=== PATIENT | male | born 1980 | race Caucasian/White ===

== ENCOUNTER 2022-05-29 13:42 | Emergency (ER) | payer OTHER ==
[2022-05-29] MEDS ORDERED: SODIUM CHLORIDE 0.9% 1000 ML INFUS.BAG IV ONE (14:42)
[2022-05-29] MEDS ORDERED: ACETAMINOPHEN 1000 MG/100 ML BAG IVPB ONE (14:42)
[2022-05-29] MEDS ORDERED: ACETAMINOPHEN INJECTION 100 ML IVPB ONE (15:01)
[2022-05-29 15:15] LABS: INR 1.15 (0.83-1.09); PROTHROMBIN TIME (PATIENT) 13.3 SEC (9.7-13.0)
[2022-05-29 15:18] LABS: ACTIVATED PTT 32.5 SECONDS (25.2-36.5)
[2022-05-29 15:19] LABS: EPITHELIAL CELLS RARE /hpf
[2022-05-29 15:22] LABS: ALBUMIN 4.6 g/dl (3.4-5.0); BILIRUBIN,TOTAL 1.9 mg/dl (0.2-1); CALCIUM 9.4 mg/dl (8.5-10); CREATININE 1.2 mg/dl (0.55-1.3); POTASSIUM 3.9 mmol/L (3.5-5.1); TOT PROT 7.7 g/dl (6.4-8.2)
[2022-05-29] MEDS ORDERED: CEFTRIAXONE 1 GM in DEXTROSE 5%-WATER - 100 ML IVPB ONE (16:07)
[2022-05-29] MEDS ORDERED: cefTRIAXone SODIUM 1 GM VIAL ONE (16:41)
[2022-05-29 16:56] LABS: BASO % 0.2 % (0-2.0); HEMATOCRIT 46.6 % (35.4-49); HEMOGLOBIN 16.2 GM/dL (11.7-16.9); LYMPH % 5.9 % (8-40); MCH 31.2 pg (25.7-33.7); MCHC 34.7 g/dl (32.0-35.9); MEAN PLT VOLUME 11.5 fl (7.5-11.1); MONO % 6.1 % (3.8-10.2); NEUT % 87.8 % (42.8-82.8); PLATELET COUNT 173 10^3/uL (134-434); RBC 5.17 M/mm3 (4.00-5.60); RDW 12.7 % (11.9-15.9); WHITE BLOOD COUNT 19.1 K/mm3 (4.0-10.0)
[2022-05-29 19:39] VITALS: BMI 27.6
[2022-05-29] MEDS: ACETAMINOPHEN 325 MG TABLET (FP) PO PRN (21:59)
[2022-05-30] MEDS: ACETAMINOPHEN 325 MG TABLET (FP) PO PRN (03:08)
[2022-05-30 08:34] LABS: CREATININE 1.3 mg/dl (0.55-1.3)
[2022-05-30] MEDS: ACETAMINOPHEN 1000 MG/100 ML BAG IVPB PRN ×3 (09:16→20:42)
[2022-05-30 09:46] LABS: TOT PROT 7.2 g/dl (6.4-8.2)
[2022-05-30] MEDS ORDERED: CEFTRIAXONE 1 GM in DEXTROSE 5%-WATER - 50 ML IVPB SCH (10:00)
[2022-05-30 10:02] LABS: MCH 31.2 pg (25.7-33.7); MCHC 34.5 g/dl (32.0-35.9)
[2022-05-30 10:12] LABS: BASO % 0.3 % (0-2.0); EOS % 0.1 % (0-4.5); HEMATOCRIT 43.6 % (35.4-49); LYMPH % 7.4 % (8-40); MEAN CELL VOLUME 90.4 fl (80-96); MEAN PLT VOLUME 12.3 fl (7.5-11.1); MONO % 6.5 % (3.8-10.2); NEUT % 85.7 % (42.8-82.8); PLATELET COUNT 158 10^3/uL (134-434); RBC 4.82 M/mm3 (4.00-5.60); RDW 12.6 % (11.9-15.9)
[2022-05-30] MEDS ORDERED: CEFTRIAXONE 1 GM in DEXTROSE 5%-WATER - 50 ML IVPB ONE (10:45)
[2022-05-30] MEDS: SODIUM CHLORIDE 1,000 ML IV SCH (17:05)
[2022-05-30 22:52] VITALS: RESP 18
[2022-05-31 08:24] LABS: ALBUMIN 3.4 g/dl (3.4-5.0); BILIRUBIN,DIRECT 0.3 mg/dL (0.0-0.2); BILIRUBIN,TOTAL 1.4 mg/dl (0.2-1); CALCIUM 8.6 mg/dl (8.5-10); CREATININE 1.1 mg/dl (0.55-1.3); POTASSIUM 4.1 mmol/L (3.5-5.1); TOT PROT 6.4 g/dl (6.4-8.2)
[2022-05-31 10:10] LABS: HEMOGLOBIN 13.7 GM/dL (11.7-16.9)
[2022-05-31 10:50] LABS: BASO % 0.2 % (0-2.0); EOS % 0.3 % (0-4.5); HEMATOCRIT 40.2 % (35.4-49); LYMPH % 8.7 % (8-40); MCHC 34.2 g/dl (32.0-35.9); MEAN CELL VOLUME 90.6 fl (80-96); MEAN PLT VOLUME 11.9 fl (7.5-11.1); MONO % 8.5 % (3.8-10.2); NEUT % 82.3 % (42.8-82.8); PLATELET COUNT 136 10^3/uL (134-434); RBC 4.44 M/mm3 (4.00-5.60); RDW 12.6 % (11.9-15.9); WHITE BLOOD COUNT 13.5 K/mm3 (4.0-10.0)
[2022-05-31] MEDS: ENOXAPARIN NA (PORCINE) 40 MG/0.4 ML DISP.SYRIN SQ SCH (11:54)
[2022-05-31] MEDS: CEFTRIAXONE 2 GM in DEXTROSE 5%-WATER 100 ML IVPB SCH (11:58)
[2022-05-31] MEDS: SODIUM CHLORIDE 1,000 ML IV SCH (21:55)
[2022-06-01] MEDS: CEFTRIAXONE 2 GM in DEXTROSE 5%-WATER 100 ML IVPB SCH (09:57)
[2022-06-01] MEDS: ENOXAPARIN NA (PORCINE) 40 MG/0.4 ML DISP.SYRIN SQ SCH (09:57)
[2022-06-01 10:11] VITALS: BP 105/64; PULSE 72; TEMP 99
[2022-06-01 11:02] LABS: ALBUMIN 3.6 g/dl (3.4-5.0); CALCIUM 9.1 mg/dl (8.5-10); CREATININE 1.1 mg/dl (0.55-1.3); POTASSIUM 4.2 mmol/L (3.5-5.1); TOT PROT 6.8 g/dl (6.4-8.2)
[2022-06-01 12:13] LABS: BASO % 0.4 % (0-2.0); HEMATOCRIT 42.1 % (35.4-49); HEMOGLOBIN 14.2 GM/dL (11.7-16.9); LYMPH % 11.1 % (8-40); MCH 30.8 pg (25.7-33.7); MCHC 33.8 g/dl (32.0-35.9); MEAN CELL VOLUME 91.2 fl (80-96); MEAN PLT VOLUME 11.4 fl (7.5-11.1); MONO % 12.6 % (3.8-10.2); NEUT % 73.9 % (42.8-82.8); PLATELET COUNT 142 10^3/uL (134-434); RBC 4.62 M/mm3 (4.00-5.60); RDW 12.7 % (11.9-15.9); WHITE BLOOD COUNT 6.9 K/mm3 (4.0-10.0)
== END 2022-06-01 13:00 | disposition home or self-care (01) ==
LOC: FER 13:42 → UNDOADMOB 17:12 → FM/S 17:12
PROVIDERS: ADMIT Internal Medicine
PROC: 3E03329 Introduction of Other Anti-infective into Peripheral Vein, Percutaneous Approach (ICD-10-PCS; principal; 2022-05-29)
PROC: 3E013GC Introduction of Other Therapeutic Substance into Subcutaneous Tissue, Percutaneous Approach (ICD-10-PCS; 2022-05-29)
PROC: 3E0337Z Introduction of Electrolytic and Water Balance Substance into Peripheral Vein, Percutaneous Approach (ICD-10-PCS; 2022-05-29)
DX: N39.0 Urinary tract infection, site not specified (principal); A41.9 Sepsis, unspecified organism; E87.1 Hypo-osmolality and hyponatremia; E80.6 Other disorders of bilirubin metabolism; K59.00 Constipation, unspecified; R00.2 Palpitations; R01.1 Cardiac murmur, unspecified; R50.9 Fever, unspecified; D72.829 Elevated white blood cell count, unspecified; N40.1 Benign prostatic hyperplasia with lower urinary tract symptoms
CPT/HCPCS: 0241U-QW; 36415; 71046-TC-FY; 74176-TC; 80048; 80053; 81003; 81015; 82248; 82436; 82728; 83605; 83930; 83935; 84133; 84153; 84300; 84443; 85025; 85610; 85730; 86664; 87040; 87086; 87186; 87491; 87591; 87661; 87799; 99285-25; G0378